=== PATIENT | male | born 2000 | race Caucasian/White ===

== ENCOUNTER 2021-06-26 08:36 | Inpatient (IN) | payer OTHER, SELFPAY ==
[~2021-06-26] VITALS: Ht 182.9 cm; Wt 94.3 kg
[2021-06-26 08:40] VITALS: BP 104/69
--- NOTE | 2021-06-26 08:45 | NUR ---
Patient ambulated to bed 03 with steady/even gait.
[2021-06-26] MEDS ORDERED: ALBUTEROL SULFATE/IPRATROPIU 3 ML SOL IH ONE ×2 (08:50→11:00)
[2021-06-26] MEDS ORDERED: methylPREDNISolone SS 125 MG in WATER STERILE 2 ML IM ONE (08:50)
[2021-06-26] MEDS ORDERED: ALBUTEROL 0.083% 2.5 MG/3 ML NEBU INH ONE (08:50)
[2021-06-26] MEDS ORDERED: WATER STERILE 0 ML MC ONE (08:57)
[2021-06-26] MEDS ORDERED: methylPREDNISolone SS 125 MG/2 ML VIAL ONE (08:57)
--- NOTE | 2021-06-26 08:58 | NUR ---
RT at bedside
--- NOTE | 2021-06-26 09:00 | NUR ---
21/M BIB SELF WITH C/O SHORTNESS OF BREATH SINCE LAST NIGHT, STATES HX OF ASTHMA BUT STATES HE DOES NOT HAVE AN INHALER HE USES REGULARLY. PT REPORTS WAKING UP THIS MORNING AND FEELING WORSENING SHORTNESS OF BREATH; REPORTS INABILITY TO SLEEP LAST NIGHT DUE TO THIS. PT DENIES MEDICATIONS PRIOR TO ARRIVAL. PT STATES "BAD ASTHMA" A KID AND DENIES RECENT EXACERBATIONS. STATES LAST EPISODE OF SOB WAS FROM CHILDHOOD. LUNG SOUNDS BILATERAL WHEEZING. PT TACHYPNEA @ RR 23. 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 BED LOCKED IN LOWEST POSITION, SIDE RAILS X 2. MEDHX: ASTHMA ALLERGIES: NKA
--- NOTE | 2021-06-26 10:23 | NUR ---
Oliver diaz in [facility] - 06/26/21 at 1023 by LAUREN _t
--- NOTE | 2021-06-26 11:05 | NUR ---
RT at bedside for 2nd breathing tx
--- NOTE | 2021-06-26 11:20 | NUR ---
Dr. Deluna is reevaluating pt at bedside
--- NOTE | 2021-06-26 11:25 | NUR ---
Urine sample walked to lab and handed to CPT. Kelly
--- NOTE | 2021-06-26 11:50 | NUR ---
Pt SpO2 92% on room air, HOB elevated; placed on 2L by N/C SpO2 97% at this time.
--- NOTE | 2021-06-26 11:50 | NUR ---
Blood work, COVID chasity swab collected, walked to lab and handed to CPT Kelly.
[2021-06-26] MEDS ORDERED: FAMOTIDINE 20 MG TAB PO ONE (11:55)
[2021-06-26] MEDS ORDERED: ALBUTEROL SULFATE/IPRATROPIU 3 ML SOL IH PRN (11:55)
[2021-06-26] MEDS ORDERED: LORATADINE 10 MG TAB PO ONE (11:55)
[2021-06-26] MEDS ORDERED: FAMOTIDINE 20 MG TAB ONE (12:00)
[2021-06-26] MEDS ORDERED: LORATADINE 10 MG TAB ONE (12:01)
[2021-06-26 12:05] LABS: BASOPHILS # (AUTO) 0.1 K/uL (0.00-0.22); BASOPHILS % (AUTO) 0.7 % (0.0-2.0); EOSINOPHILS # (AUTO) 0.1 K/uL (0-0.4); HEMATOCRIT 43.5 % (36-52); HEMOGLOBIN 14.7 g/dL (12.0-18.0); LYMPHOCYTES # (AUTO) 0.7 K/uL (2.0-11.5); LYMPHOCYTES % (AUTO) 6.7 % (20.5-51.1); MEAN CORPUSCULAR HEMOGLOBIN 30 pg (27-31); MEAN CORPUSCULAR HGB CONC 34 g/dL (33-37); MEAN CORPUSCULAR VOLUME 88.3 fL (80-94); MONOCYTES # (AUTO) 0.3 K/uL (0.8-1.0); MONOCYTES % (AUTO) 2.7 % (1.7-9.3); NEUTROPHILS # (AUTO) 8.9 K/uL (1.8-7.7); NEUTROPHILS % (AUTO) 88.9 % (42.2-75.2); PLATELET COUNT (AUTO) 264 K/uL (140-450); RED BLOOD CELL COUNT(AUTO) 4.92 MIL/uL (4.20-6.10); RED CELL DISTRIBUTION WIDTH 13.6 % (11.6-13.7); WHITE BLOOD COUNT (AUTO) 10.1 K/uL (4.8-10.8)
[2021-06-26 12:35] LABS: ANION GAP 7.2 (8-16); CARBON DIOXIDE 26.6 mmol/L (21-32); CREATININE 0.8 mg/dL (0.6-1.3); POTASSIUM 3.8 mmol/L (3.5-5.1)
--- NOTE | 2021-06-26 12:42 | NUR ---
Patient will be admitted to care of Dr. Adan. Admited to Telemetry. Will go to room 112B. Belongings list completed. Report to DEMI Caicedo.
--- NOTE | 2021-06-26 12:55 | NUR ---
RECEIVED BEDSIDE REPORT FROM ED NURSE FOR CONTINUITY OF CARE. PT IS RESTING, ALERT AND ORIENTED.AMBULATORY. BREATHING IS EVEN AND UNLABORED. NO SIGNS OF DISTRESS NOTED. CALL LIGHT WITHIN REACH. BED IN LOW LOCKED POSITION. ALL PRECAUTIONS IN PLACE. PT IS STABLE.
[2021-06-26 13:00] VITALS: BP 114/69
[2021-06-26] MEDS ORDERED: LEVOFLOXACIN 500 MG/D5W PREMIX 100 ML IV SCH (14:50)
--- NOTE | 2021-06-26 14:50 | NUR ---
GAVE ABX PER MD ORDER. PT TOLERATED WELL. PT IS RESTING, ALERT AND ORIENTED.AMBULATORY. BREATHING IS EVEN AND UNLABORED. NO SIGNS OF DISTRESS NOTED. CALL LIGHT WITHIN REACH. BED IN LOW LOCKED POSITION. ALL PRECAUTIONS IN PLACE. PT IS STABLE.
[2021-06-26] MEDS: ALBUTEROL SULFATE/IPRATROPIU 3 ML SOL IH SCH ×3 (15:58→22:31)
[2021-06-26 16:00] VITALS: BP 123/66
--- NOTE | 2021-06-26 19:13 | NUR ---
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 POC DISCUSSED.
[2021-06-26] MEDS ORDERED: BUDESONIDE 0.5 MG/2 ML NEBU INH SCH (19:30)
[2021-06-26 20:00] VITALS: BP 122/65
[2021-06-26] MEDS ORDERED: methylPREDNISolone SS 40 MG/ML VIAL IVP SCH (21:00)
[2021-06-26] MEDS ORDERED: DOCUSATE SODIUM 100 MG GELCAP PO PRN (21:10)
[2021-06-26] MEDS ORDERED: ONDANSETRON 4 MG/2 ML VIAL IM/IVP PRN (21:10)
[2021-06-26] MEDS ORDERED: ACETAMINOPHEN 325 MG TAB PO PRN (21:10)
[2021-06-26] MEDS ORDERED: ZOLPIDEM 5 MG TAB PO PRN (21:10)
[2021-06-26] MEDS ORDERED: HYDROcodone/APAP 7.5/325 MG 1 TAB PO PRN (21:10)
[2021-06-26] MEDS ORDERED: guaiFENesin DM 200/20 MG-10 ML 10 ML UDC PO PRN (21:10)
[2021-06-26] MEDS ORDERED: NACL 0.9% 1,000 ML IV SCH (21:10)
[2021-06-26] MEDS ORDERED: POTASSIUM CHLORIDE 10 MEQ TABER PO PRN (21:10)
[2021-06-26 22:21] LABS: CHOL/HDL RATIO 3.2 (1-4.5); FREE T4 (FREE THYROXINE) 1.08 ng/dL (0.76-1.46); MAGNESIUM 2.2 mg/dL (1.8-2.4); PHOSPHORUS 2.2 mg/dL (2.5-4.9); THYROID STIMULATING HORMONE 0.55 uIU/mL (0.34-3.74)
--- NOTE | 2021-06-27 00:23 | NUR ---
patient left against medical advise. educated pt on risks and consequences . pt still opted to leave. AMA document signed. notified dr Adan . pt stable alert oriented x4 denies pain O2 sat 94 percent on Room air.
[2021-06-27] MEDS ORDERED: LORATADINE 10 MG TAB PO SCH (09:00)
[2021-06-27] MEDS ORDERED: PANTOPRAZOLE 40 MG TABEC PO SCH (09:00)
[2021-06-27] MEDS ORDERED: FAMOTIDINE 20 MG TAB PO SCH (09:00)
[2021-06-28 08:08] LABS: T4 (THYROXINE) 9.4 ug/dL (4.5-12.0)
== END 2021-06-27 00:25 | disposition left against medical advice (07) | DRG 189 ==
LOC: MED 08:36 → MTU 11:54
PROVIDERS: ADMIT Family Medicine; ATTEND Family Medicine
DX: J96.01 Acute respiratory failure with hypoxia (principal); J45.901 Unspecified asthma with (acute) exacerbation; Z20.822 Contact with and (suspected) exposure to COVID-19
CPT/HCPCS: 36415; 71045; 80048; 82150; 83036; 83690; 83735; 83880; 84100; 84436; 84439; 84443; 84479; 84484; 85025; 85610; 85730; 87081; 94640; 96372; 99291; J1956; J2920; J2930; J7613; J7626

== ENCOUNTER 2021-07-02 11:35 | Emergency (ER) | payer OTHER, SELFPAY ==
[~2021-07-02] VITALS: Ht 185.4 cm; Wt 94.8 kg
[2021-07-02 11:38] VITALS: BP 125/76
--- NOTE | 2021-07-02 11:43 | NUR ---
pt moved to [facility] at this time rt called for tx
[2021-07-02] MEDS ORDERED: IPRATROPIUM 0.02% 0.5 MG/2.5 ML NEBU INH ONE (11:50)
[2021-07-02] MEDS ORDERED: ALBUTEROL 0.083% 2.5 MG/3 ML NEBU INH ONE ×2 (11:50→12:35)
--- NOTE | 2021-07-02 11:54 | NUR ---
[facility] GIVEN ORDERED ENCOURAGED INTERMITTENT DEEP BREATHING DURING THERAPY
--- NOTE | 2021-07-02 11:55 | NUR ---
Respiratory Therapist with pt for respiratory intervention. Patient tolerated .
[2021-07-02] MEDS ORDERED: ALBU0.0912 INH (12:18)
--- NOTE | 2021-07-02 12:59 | NUR ---
FOLLOW UP [facility] GIVEN ORDERED ENCOURAGED PATIENT FOR INTERMITTENT DEEP BREATHING DURING THERAPY
--- NOTE | 2021-07-02 13:00 | NUR ---
RT WITH PT FOR BREATHING TX.
--- NOTE | 2021-07-02 13:44 | NUR ---
pt left dx paperwork on chair a
[2021-07-02 13:49] VITALS: BP 133/77
--- NOTE | 2021-07-02 13:50 | NUR ---
Patient discharged with v/s stable. Written and verbal after care instructions given FOR SHORTNESS OF BREATH and explained. Patient alert, oriented and verbalized understanding of instructions. Ambulatory with steady gait. All questions addressed prior to discharge. ID band removed. Patient advised to follow up with PMD. Rx of ALBUTEROL given. Patient educated on indication of medication including possible reaction and side effects. Opportunity to ask questions provided and answered.
== END 2021-07-02 13:49 | disposition home or self-care (01) ==
LOC: MED 11:35
DX: J45.901 Unspecified asthma with (acute) exacerbation (principal); Z79.899 Other long term (current) drug therapy
CPT/HCPCS: 94640; 99285; J7613; J7644